=== PATIENT | male | born 1950 | race Caucasian/White ===

== ENCOUNTER 2019-05-27 18:10 | Observation (INO) ==
[2019-05-27] MEDS ORDERED: 0.9 % Sodium Chloride 1,000 ML IVC SCH (18:45)
[2019-05-27] MEDS ORDERED: Ondansetron 4 MG/2 ML VIAL IVP PRN (20:23)
[2019-05-27] MEDS ORDERED: Acetaminophen 325 MG TABLET PO PRN (20:23)
[2019-05-27] MEDS ORDERED: Ipratropium/Albuterol Neb 3 ML IH PRN (20:57)
[2019-05-27] MEDS: Ringers Solution, Lactated 1,000 ML IVC SCH (21:45)
[2019-05-28] MEDS: Ringers Solution, Lactated 1,000 ML IVC SCH (03:20)
[2019-05-28 05:41] LABS: Prothrombin Time 11.7 Seconds (9.4-12.1)
[2019-05-28 05:43] LABS: Basophils # 0.1 K/mcL (0.0-0.2); Basophils % 0.9 %; Eosinophils # 0.5 K/mcL (0.0-0.6); Eosinophils % 8.3 %; Hematocrit 28.7 % (37.5-50.1); Hemoglobin 8.4 g/dL (12.9-16.9); Immature Granulocytes % 0.2 % (0-4); Lymphocytes # 1.5 K/mcL (0.6-4.6); Lymphocytes % 26.4 %; Mean Corpuscular HGB Conc 29.3 g/dL (31.6-35.5); Mean Corpuscular Hemoglobin 23.1 pg (28.0-33.3); Mean Corpuscular Volume 79.1 fL (83.0-100.0); Mean Platelet Volume 10.2 fL (9.4-12.4); Monocytes # 0.6 K/mcL (0.0-1.3); Monocytes % 11.2 %; Platelet Count 184 K/mcL (140-400); Red Blood Count 3.63 M/mcL (4.19-5.50); Red Cell Distribution Width 16.7 % (11.5-14.5); White Blood Count 5.7 K/mcL (4.3-11.1)
[2019-05-28 05:44] LABS: Activated Partial Thrombo Time 30.5 Seconds (26.0-36.0)
[2019-05-28 05:57] LABS: Calcium 8.9 mg/dL (8.6-10.3); Potassium 4.5 mEq/L (3.5-5.1)
[2019-05-28] MEDS: carvediloL 6.25 MG TABLET PO SCH (16:28)
[2019-05-28] MEDS: 0.9 % Sodium Chloride 1,000 ML IVC SCH (16:39)
[2019-05-28] MEDS ORDERED: Budesonide/Formoterol 160/4.5 1 PUFF INH IH PRN (17:59)
[2019-05-28] MEDS ORDERED: Ipratropium/Albuterol Neb 3 ML IH PRN (17:59)
[2019-05-28] MEDS ORDERED: cefTRIAXone 1,000 MG in Water for inj. (sterile) 10 ML IVP ONE (18:03)
[2019-05-28] MEDS ORDERED: predniSONE 20 MG TABLET PO ONE (18:03)
[2019-05-28 22:16] LABS: Bilirubin,Urine Negative (Negative); Blood,Urine Large (Negative); Clarity,Urine Clear (Clear); Color,Urine Yellow (Yellow); Glucose,Urine (UA) Normal (Normal); Ketones,Urine Negative (Negative); Leukocyte Esterase,Urine Negative (Negative); Nitrite,Urine Negative (Negative); Protein,Urine 30 mg/dL (Neg-Trace); Specific Gravity,Urine 1.016 (1.010-1.025); Urobilinogen,Urine Normal (Normal)
[2019-05-28 22:17] LABS: Bacteria,Urine None Seen per hpf (None-Few); Hyaline Casts,Urine None Seen per lpf (None-Few); RBC,Urine 30-50 per hpf (0-3); Squamous Epithelial Cell,Urine Few per lpf (None-Few); WBC,Urine 0-3 per hpf (0-3)
[2019-05-28 23:17] LABS: Adenovirus Not Detected (Not Detect); Bordetella Pertussis Not Detected (Not Detect); Chlamydophila pneumoniae Not Detected (Not Detect); Coronavirus 229E Not Detected (Not Detect); Coronavirus HKU1 Not Detected (Not Detect); Coronavirus NL63 Not Detected (Not Detect); Coronavirus OC43 Not Detected (Not Detect); Human Metapneumovirus Not Detected (Not Detect); Human Rhinovirus/Enterovirus Not Detected (Not Detect); Influenza A Subtype 2009 H1 Not Detected (Not Detect); Influenza A Untypeable Not Detected (Not Detect); Influenza B Not Detected (Not Detect); Parainfluenza Virus 1 Not Detected (Not Detect); Parainfluenza Virus 2 Not Detected (Not Detect); Parainfluenza Virus 3 Not Detected (Not Detect); Parainfluenza Virus 4 Not Detected (Not Detect); Respiratory Syncytial Virus Not Detected (Not Detect)
[2019-05-28 23:18] LABS: Mycoplasma pneumoniae Not Detected (Not Detect)
[2019-05-29] MEDS: 0.9 % Sodium Chloride 1,000 ML IVC SCH (02:47)
[2019-05-29 06:33] LABS: Basophils % 0.4 %; Eosinophils % 0.2 %; Hematocrit 30.9 % (37.5-50.1); Hemoglobin 9.2 g/dL (12.9-16.9); Immature Granulocytes % 0.4 % (0-4); Lymphocytes # 0.6 K/mcL (0.6-4.6); Lymphocytes % 13.8 %; Mean Corpuscular HGB Conc 29.8 g/dL (31.6-35.5); Mean Corpuscular Hemoglobin 22.9 pg (28.0-33.3); Mean Corpuscular Volume 77.1 fL (83.0-100.0); Mean Platelet Volume 10.7 fL (9.4-12.4); Monocytes # 0.1 K/mcL (0.0-1.3); Monocytes % 1.1 %; Neutrophils # 3.9 K/mcL (1.6-8.9); Platelet Count 217 K/mcL (140-400); Red Blood Count 4.01 M/mcL (4.19-5.50); Red Cell Distribution Width 16.5 % (11.5-14.5); Segmented Neutrophils % 84.1 %; White Blood Count 4.6 K/mcL (4.3-11.1)
[2019-05-29 06:55] LABS: Calcium 9.1 mg/dL (8.6-10.3); Potassium 5.5 mEq/L (3.5-5.1)
[2019-05-29 07:31] LABS: Anisocytosis 1+ (Not Present); Platelet Estimate Normal (Normal)
[2019-05-29] MEDS: Magnesium Oxide 400 MG TABLET PO SCH (07:51)
[2019-05-29] MEDS: carvediloL 6.25 MG TABLET PO SCH ×2 (07:51→17:20)
[2019-05-29] MEDS ORDERED: (Zinc Acetate [Galzin] 50 MG) PO SCH (09:00)
[2019-05-29] MEDS: Budesonide/Formoterol 160/4.5 1 PUFF INH IH SCH ×2 (13:58→19:29)
[2019-05-29] MEDS: predniSONE 20 MG TABLET PO SCH (17:20)
[2019-05-29] MEDS: amLODIPine 5 MG TABLET PO SCH (18:57)
[2019-05-29] MEDS ORDERED: *HR* Metoprolol 5 MG/5 ML VIAL IVP ONE (20:58)
[2019-05-30 06:47] LABS: Calcium 9.4 mg/dL (8.6-10.3); Potassium 5.4 mEq/L (3.5-5.1)
[2019-05-30] MEDS: amLODIPine 5 MG TABLET PO SCH (07:42)
[2019-05-30] MEDS: predniSONE 20 MG TABLET PO SCH (07:42)
[2019-05-30] MEDS: carvediloL 6.25 MG TABLET PO SCH (07:42)
[2019-05-30] MEDS: Magnesium Oxide 400 MG TABLET PO SCH (07:42)
[2019-05-30] MEDS ORDERED: Zinc Sulfate 220 MG CAPSULE PO SCH (09:00)
[2019-05-30] MEDS ORDERED: NON-FORMULARY MEDICATION 1 EACH EACH (Tiotropium Br/Olodaterol Hcl [Stiolto Respimat Inhal PO SCH (09:00)
[2019-05-30] MEDS ORDERED: Lactulose Oral Soln 20 GM/30 ML UDC PO ONE (10:05)
[2019-05-30] MEDS: Budesonide/Formoterol 160/4.5 1 PUFF INH IH SCH (10:30)
[2019-05-30 15:06] VITALS: BP 169/78
[2019-05-31 10:12] LABS: Serine Protease-3 Antibody 11 AU/mL (0-19)
[2019-06-01 06:56] LABS: GBM IgG Multiplex Bead Assay 1 AU/mL (0-19); Glomerular Basement Memb IgG NEGATIVE (Negative)
== END 2019-05-30 16:55 | disposition home or self-care (01) ==
LOC: EMEROOARM 18:10 → 2ANU 18:10 → SUATTDRO 19:17 → 2ANU 20:47
PROVIDERS: ADMIT Internal Medicine; ATTEND Student in an Organized Health Care Education/Training Program